=== PATIENT | male | born 1950 | race Caucasian/White ===

== ENCOUNTER 2016-11-28 22:51 | Inpatient (IN) | payer OTHER ==
--- NOTE | ~2016-11-28 | CN ---
Consultation Report [facility] [address] [place]. [address] NAME: DEBBY DUARTE : 50 STATUS : ADM IN PAT#: [id number] AGE: 66 ADM/REG DATE : 11/29/16 MR#: [id number] REPORT SERV DATE: 11/30/16 DICTATED BY: RACHELLE MCDUFFIE DATE: 11/29/16 REPORT STATUS : Draft TRANSCRIBED BY: LEIA DATE: 11/29/16 DATE OF CONSULTATION: REASON FOR EVALUATION: Atrial fibrillation. HISTORY: The patient is a 66-year-old white male, who underwent a right lower lobectomy for non-small cell cancer of the lung. Postoperatively, he developed atrial fibrillation requiring cardioversion. He was placed on amiodarone and dabigatran. He was discharged home on 11/29/2016. Upon arrival, he noted return of his tachy palpitations. Upon presentation to the emergency room, he was found to be in AFib with rapid ventricular response. Heart rates in the 150-160 beats per minute range. He received a bolus of Cardizem and converted to normal rhythm. He has had moderate breathlessness as well as a productive cough, although he has not been able to produce a sputum sample as yet. He gives no prior history of heart disease, although he does have a [id number] smoking history. CURRENT HOME MEDICATIONS: Amiodarone 200 mg daily, Augmentin 875 b.i.d., dabigatran etexilate 150 b.i.d., diltiazem CD 120 a day, docusate sodium 100 per day, fluticasone nasal spray p.r.n., gabapentin 300 t.i.d., guaifenesin 400 q.4h. p.r.n., mupirocin 2% cream, oxycodone 15 q.6h., sildenafil 100 p.r.n., triamcinolone cream p.r.n., and Pepcid. ALLERGIES OR INTOLERANCES: None known. SOCIAL HISTORY: As mentioned. He has long-standing smoking history, should be 55 years. He quit one month ago. Negative for alcohol or illicit drug use. He has a 9-year-old son at home. FAMILY HISTORY: Mother had cancer of unknown type. Father had colon cancer. at age 89. He has siblings, who are otherwise healthy. There is no family history of diabetes or coronary artery disease. PAST MEDICAL HISTORY/REVIEW OF SYSTEMS: History of peritonsillar abscess, history of herpes zoster. He is status post tonsillectomy, left inguinal hernia repair, left rotator cuff repair. Remainder of the systems review is negative. During his episode of atrial fibrillation at the [facility] in [place], he states he was asymptomatic. He has had no PND or orthopnea. He has had no exertional chest discomfort. PHYSICAL EXAMINATION: GENERAL: A 66-year-old white male, pleasant, in no acute distress. VITAL SIGNS: Blood pressure 142/76, pulse 84 and regular, respirations 20. SKIN: No xanthelasmas. HEENT: Normocephalic. There is no pallor. Sclerae white. JVD is not elevated. CHEST: There is hyperresonant to percussion. There are no crackles. CARDIAC: S1 normal. S2 physiologic. There is an S4. Consultation Report [address] [place]. [address] NAME: DEBBY DUARTE : 50 STATUS : ADM IN [facility]#: [id number] AGE: 66 ADM/REG DATE : 11/29/16 MR#: [id number] REPORT SERV DATE: 11/30/16 DICTATED BY: RACHELLE MCDUFFIE DATE: 11/29/16 REPORT STATUS : Draft TRANSCRIBED BY: LEIA DATE: 11/29/16 ABDOMEN: Protuberant. Bowel sounds diminished. EXTREMITIES: With trace edema. NEUROLOGIC: No focal deficits. MUSCULOSKELETAL: No kyphosis. LABORATORY DATA: Potassium 5.5, BUN 23, creatinine 1.32, magnesium 2.2. ALT and AST slightly elevated at 66 and 85 respectively. TSH 16.1. Cardiac enzymes are negative. BNP is 124, white count 11.1, hemoglobin 11, platelets 200,000. Chest x-ray shows recent right lobectomy, small pleural effusions, and subcutaneous emphysematous changes over the chest wall. There are no large or small vessel calcification noted on the portable film. IMPRESSION: Postoperative atrial fibrillation in 66-year-old gentleman with recent right lower lobectomy. He is on appropriate therapy. He is asymptomatic with his arrhythmias. We could consider increasing his Cardizem to 240 a day. Some of the therapy he is receiving would be portending him to constipation. Addendum ECG post conversion shows incomplete right bundle branch block pattern with no acute repolarization changes present. Initial ECG shows atrial fibrillation, rate 151 beats per minute. No acute repolarization changes present. See recommendations for medication adjustment and orders. We will continue to follow with you. DANG/LEIA Rachelle Mcduffie M.D. / [id number] CC: Darai Youngblood M.D. [facility]
--- NOTE | ~2016-11-28 | DS ---
Discharge Summary [facility] [address] [place]. [address] NAME: DEBBY DUARTE : 50 STATUS : DIS IN PAT#: [id number] AGE: 66 ADM/REG DATE : 11/29/16 MR#: [id number] REPORT SERV DATE: 12/04/16 DICTATED BY: IGNACIA MADRIGAL DATE: 12/03/16 REPORT STATUS : Draft TRANSCRIBED BY: LEIA DATE: 12/03/16 ADMISSION DATE: 11/29/2016 DISCHARGE DATE: 12/03/2016 DIAGNOSES: 1. Fluid overload. 2. Atrial fibrillation with rapid ventricular response. 3. Right hydropneumothorax. 4. Hypertension. 5. Hypothyroidism. 6. History of non-small cell lung cancer, status post recent lobectomy through the [place]. FOLLOWUP: The patient is to follow up with his oncologist, which is already scheduled at [place] on 12/17/2016; to follow up with a CT surgeon through the [place], which is already scheduled on 12/18/2016; and follow up with his primary care physician in one to two weeks. CONSULTANTS: 1. Pulmonary, Dr. Gamble. 2. Cardiothoracic surgeon, Dr. Erickson. 3. Contracting Support Specialist, Dr. Tay Mcduffie. HOSPITAL COURSE: This is a 66 years old male with a past medical history of paroxysmal atrial fibrillation and non-small cell lung cancer. The patient was recently admitted to [facility] in [place] and required right lower lobe lobectomy for a lung mass. The patient had atrial fibrillation as well during the hospital stay and placed on amiodarone, diltiazem, and Pradaxa. The patient was discharged with 2 to 4 L of oxygen from the [facility] in [place]. However, the patient stated after discharge, he was noticed to have increased heart rate with palpitations. He came to [facility] ER, found to be in atrial fibrillation with RVR with a pulse rate 150 to 160. He converted to normal sinus rhythm after giving a diltiazem bolus. Also, found to have bilateral pleural effusions. The patient was admitted to the Hospitalist Service with a Cardiology consultation, seen by Dr. Tay Mcduffie. Also, the patient was initially admitted to Dr. Daria Youngblood for Internal Medicine/Hospitalist Service. The patient did require diuresing and placed on Lasix. Also, he was continued with heart rate control, management with amiodarone. His diltiazem was increased to 240 mg daily by Cardiology and placed on atenolol with good management of heart rate. The patient was noted to have CT of the chest without contrast with findings consistent with hydropneumothorax, being followed by Pulmonary, therefore, geoscience technician consulted Cardiothoracic Surgery for evaluation. Per Cardiothoracic Surgery, the patient did not require any further surgical intervention and did not have any signs of fistula, but states that his CT findings are secondary to poor lung reexpansion secondary to his recent right lower lobe lobectomy, but at this time, do not require any intervention. The patient continued with diuresing with improvement of lung function; however, still requiring oxygen at discharge and still will have some chronic effusion secondary to his hydropneumothorax secondary to his recent lobectomy. Also, the patient's heart rate was controlled at the time of discharge and approved for discharge by Pulmonary as well as Cardiology. At the time of discharge, the patient was clinically stable. Discharge Summary [facility] [address] [place]. [address] NAME: DEBBY DUARTE : 50 STATUS : DIS IN PAT#: [id number] AGE: 66 ADM/REG DATE : 11/29/16 MR#: [id number] REPORT SERV DATE: 12/04/16 DICTATED BY: IGNACIA MADRIGAL DATE: 12/03/16 REPORT STATUS : Draft TRANSCRIBED BY: LEIA DATE: 12/03/16 DISCHARGE MEDICATIONS: Amiodarone 200 mg p.o. daily, guaifenesin 400 mg p.o. q.4 hours p.r.n., Pradaxa 150 mg p.o. b.i.d., diltiazem CD 240 mg p.o. daily, Flonase two sprays in each nostril daily, furosemide 20 mg p.o. b.i.d., Neurontin 300 mg p.o. t.i.d., levothyroxine 50 mcg p.o. q.a.m., albuterol MDI two puffs inhaled every four hours, Bactroban ointment topically three times a day, Florastor one cap p.o. b.i.d., Spiriva 18 mcg cap inhaled daily, triamcinolone topical cream per prior prescriber, Roxicodone 15 mg p.o. q.6 hours p.r.n., artificial tears p.r.n., potassium chloride 20 mEq p.o. daily, atenolol 12.5 mg p.o. b.i.d. HOSPITALISTS: Dr. Cox, Dr. Daria Youngblood, Dr. Madrigal. JAZ/MODL Ignacia Madrigal M.D. / [id number] CC: Ignacia Madrigal M.D. [facility]
--- NOTE | ~2016-11-28 | HP ---
History And Physical [facility] [address] [place]. [address] NAME: DEBBY CHAND : 50 STATUS : ADM Mohamud PAT#: [id number] AGE: 66 ADM/REG DATE : 11/28/16 MR#: [id number] REPORT SERV DATE: 11/29/16 DICTATED BY: RODRÍGUEZ SERRANO DATE: 11/29/16 REPORT STATUS : Draft TRANSCRIBED BY: MODL DATE: 11/29/16 DATE OF ADMISSION: 11/28/2016 POINT OF ENTRY: [facility] Emergency Department PRIMARY CARE PHYSICIAN: None at this time. CHIEF COMPLAINT: Palpitations and fast heart rate. HISTORY OF PRESENT ILLNESS: Mr. Chand is a 66-year-old gentleman with a history of non- small cell lung cancer, as well as paroxysmal atrial fibrillation, who presents to the emergency room today with reports of palpitations and fast heart rate. The patient was recently admitted to the [facility] for a right lower lobe lobectomy for a lung mass. Pathology documents squamous cell carcinoma of the lung with reported negative margins as well as negative lymph nodes. The patient's hospital stay was complicated by atrial fibrillation with RVR requiring DCCV as well as placement on amiodarone, diltiazem, and Pradaxa. The patient was discharged to home early this morning from the [facility] on 2 L by nasal cannula oxygen. Upon arriving home, the patient noted palpitations as well as fast heart rate and presented to the emergency department. He, otherwise denies any fevers, night sweats, chills, chest pain, abdominal pain, nausea, vomiting, diarrhea, constipation, dysuria, lower extremity edema, melena, hematochezia, or hemoptysis. He does report some shortness of breath, as well as cough and sputum production as well as some significant pain with coughing postoperatively. Initial evaluation in the emergency department revealed atrial fibrillation with RVR. Heart rates in the 150s to 160s. He received bolus of diltiazem with conversion to normal sinus rhythm. Labs otherwise unremarkable. Chest x-ray, however, was concerning for bilateral pleural effusions as well as intravascular volume overload. As such, he was admitted to the Hospitalist Service for further evaluation and management. Again, the patient denies any history of coronary artery disease or congestive heart failure. He thinks he had an echocardiogram during his [place] stay for atrial fibrillation, but is unable to tell me the results of which and does not have those results in the documents that he brings with him today. PREVIOUS MEDICAL HISTORY: 1. Non-small cell lung cancer, status post recent right lower lobe lobectomy. 2. Paroxysmal atrial fibrillation, on Pradaxa. 3. History of peritonsillar abscess. 4. History of herpes zoster. SURGICAL HISTORY: 1. Right lower lobe lobectomy. History And Physical [address] [address] NAME: DEBBY CHAND : 50 STATUS : ADM Mohamud PAT#: [id number] AGE: 66 ADM/REG DATE : 11/28/16 MR#: [id number] REPORT SERV DATE: 11/29/16 DICTATED BY: RODRÍGUEZ SERRANO DATE: 11/29/16 REPORT STATUS : Draft TRANSCRIBED BY: LEIA DATE: 11/29/16 2. Tonsillectomy. 3. Left inguinal hernia repair. 4. Left rotator cuff repair. ALLERGIES: NO KNOWN DRUG ALLERGIES. HOME MEDICATIONS: 1. Amiodarone 200 mg daily. 2. Augmentin 875 mg b.i.d. 3. Artificial tears. 4. Pradaxa 150 mg b.i.d. 5. Diltiazem 120 mg daily. 6. Docusate 100 mg daily. 7. Flonase two sprays nasal daily. 8. Gabapentin 300 mg t.i.d. 9. Guaifenesin 400 mg q.4 hours p.r.n. 10.Bactroban topical cream one application t.i.d. 11.Roxicodone 15 mg q.6 hours p.r.n. 12.Viagra 100 mg p.r.n. 13.Triamcinolone topical cream. 14.Carboxymethylcellulose. SOCIAL HISTORY: He is a former smoker, quit about a month ago. Denies any alcohol. Denies illicits. FAMILY MEDICAL HISTORY: Mother with cancer, type unknown. Father with colon cancer. Siblings, otherwise healthy. LABS AND IMAGIN. White count 8.9, hemoglobin 11.1, hematocrit is 33.8, platelets 210. INR 1.2. 2. Sodium is 138, potassium 4.5, chloride 99, carbon dioxide 30, BUN 21, creatinine 1.22, glucose is 158, calcium is 8.5, magnesium is 2.3. 3. Troponin less than 0.02. BNP is pending at time of dictation. 4. EKG per my review. Initial EKG shows atrial fibrillation with RVR. Heart rates in the 150s. Repeat EKG now shows normal sinus rhythm with an incomplete right bundle branch block. No evidence of any acute ischemia or infarction. Chest x-ray, per my review, shows bilateral pleural effusions as well as intravascular volume overload and pulmonary venous congestion. PHYSICAL EXAMINATION: VITAL SIGNS: Temperature is 98.1 degrees Fahrenheit, pulse initially is 152, blood pressure 129/90, saturating 99% on 2 L by nasal cannula, blood pressure is now 115/65, pulse is 76 in normal sinus rhythm, again saturating 96% on 2 L by nasal cannula. GENERAL: The patient is awake, alert, and in no acute distress. Resting comfortably in bed. He is a well-developed, well-nourished, elderly male. HEENT: Atraumatic and normocephalic. Moist mucous membranes. Pupils equal, round, reactive to light and accommodation. Extraocular eye movements intact. No scleral icterus. History And Physical [address] [address] NAME: DEBBY CHAND : 50 STATUS : ADM Mohamud PAT#: [id number] AGE: 66 ADM/REG DATE : 11/28/16 MR#: [id number] REPORT SERV DATE: 11/29/16 DICTATED BY: RODRÍGUEZ SERRANO DATE: 11/29/16 REPORT STATUS : Draft TRANSCRIBED BY: LEIA DATE: 11/29/16 NECK: No jugular venous distention. No carotid bruits. CARDIAC: Regular rate and rhythm. No murmurs or gallops. Normal S1, S2. LUNGS: He is on oxygen, but in no respiratory distress. He does have some bibasilar inspiratory crackles as well as rales. The right thoracotomy site is clean, dry, and intact. ABDOMEN: Soft, nontender, nondistended. Good bowel sounds. No rebound or guarding or rigidity. EXTREMITIES: Warm and perfused. No cyanosis or clubbing with very trace pedal edema. SKIN: Warm and dry. PSYCH: Affect appropriate. NEURO: Alert and oriented x3. Cranial nerves II through XII grossly intact. Speech is normal. Gait not assessed. ASSESSMENT AND PLAN: Mr. Chand 66-year-old gentleman who presents with an atrial fibrillation patient with rapid ventricular response, now in normal sinus rhythm and found to have evidence of acute congestive heart failure with volume overload. Problem list: 1. Acute congestive heart failure with volume overload. 2. Atrial fibrillation with rapid ventricular response. 3. Non-small cell lung cancer. PLAN: 1. Acute CHF and volume overload. It is unclear if the volume overload that we are seeing is secondary to fluid resuscitation received during his surgery as well as postoperative period versus some CHF type pattern from his atrial fibrillation with RVR or secondary to LV or diastolic dysfunction. He is not on any Lasix at this time, so we will initially treat him with very low doses of IV Lasix initially as well as check a BNP as well as echocardiogram. Also, I will try to obtain records from the [facility]. 2. Atrial fibrillation with RVR. Now in normal sinus rhythm. Continue the patient's home medications. Checking thyroid function studies, as well as cardiac enzymes. 3. Non-small cell lung cancer. I will defer care to the [facility]. 4. DVT prophylaxis. On Pradaxa. CODE STATUS: The patient wished to be full code. MILI/LEIA Rodríguez Serrano MD / [id number]
--- NOTE | ~2016-11-28 | CN ---
Consultation Report [facility] [address] [place]. [address] NAME: DEBBY DUARTE : 50 STATUS : ADM IN PAT#: [id number] AGE: 66 ADM/REG DATE : 11/29/16 MR#: [id number] REPORT SERV DATE: 12/02/16 DICTATED BY: RODRÍGUEZ ERICKSON JR. DATE: 12/01/16 REPORT STATUS : Draft TRANSCRIBED BY: MODL DATE: 12/01/16 CONSULTATION AND HISTORY AND PHYSICAL DATE OF CONSULTATION: 11/30/2016 REASON FOR CONSULTATION: Pneumothorax, status post right lower lobectomy. BRIEF HISTORY: This is a 66-year-old white male with a history of a very large right lower lobe squamous cell carcinoma that was resected at the [place] [facility] last week, and this was done with a right thoracotomy. He presented to [facility] on 11/28/2016 with atrial fibrillation with rapid ventricular response. He does report that he had difficulties postoperatively with atrial fibrillation and was placed on amiodarone and cardioverted. He underwent a CT of the chest which demonstrated a small right hydropneumothorax and given his recent lung resection at outlying facility, we were asked to see him and make recommendations regarding this finding. PAST MEDICAL HISTORY: Significant for atrial fibrillation, COPD, squamous cell carcinoma of the right lower lobe, status post right lower lobectomy approximately one week ago at the [facility]. PAST SURGICAL HISTORY: Significant for the above-mentioned right thoracotomy, right lower lobectomy, tonsillectomy, left inguinal hernia repair, and left rotator cuff repair. SOCIAL HISTORY: The patient is a past smoker having a greater than [id number] smoking history having quit around the time of today's diagnosis of a squamous cell carcinoma. He is a musician. ALLERGIES: NO KNOWN DRUG ALLERGIES. HOME MEDICATIONS: Include Amitiza 24 mcg twice a day, Augmentin 875 mg twice a day, Bactroban 3 times a day, Cardizem 60 mg every 8 hours, Colace 100 mg 3 times a day, Cordarone 200 mg daily, Dulera, Flonase, Humibid, Lasix 12 mg p.o. twice daily, MiraLAX, Neurontin 300 mg every 8 hours, Pradaxa 150 mg twice a day, Protonix 40 mg daily, Synthroid 50 mcg daily, and Tenormin 25 mg twice a day. FAMILY HISTORY: Significant for siblings and father with diabetes mellitus as well as atrial fibrillation. His father had colon cancer and his mother had an unspecified cancer of the neck. REVIEW OF SYSTEMS: Significant for mild shortness of breath and some postoperative pain. A complete 12-point review of systems was performed. All other systems were negative except for the above mentioned pertinent positives in the history of present illness. Consultation Report [address] [place]. [address] NAME: DEBBY DUARTE : 50 STATUS : ADM IN [facility]#: [id number] AGE: 66 ADM/REG DATE : 11/29/16 MR#: [id number] REPORT SERV DATE: 12/02/16 DICTATED BY: RODRÍGUEZ ERICKSON JR. DATE: 12/01/16 REPORT STATUS : Draft TRANSCRIBED BY: LEIA DATE: 12/01/16 PHYSICAL EXAMINATION: GENERAL: This is a 66-year-old male, who is alert, oriented, and in no acute distress. VITAL SIGNS: 96% on 3 L via the nasal cannula, blood pressure 104/62, afebrile, heart rate 54, height 5 feet 9 inches, weight 104 kg. HEENT: Normocephalic, atraumatic. Pupils are equal, round, and reactive to light. Ears, nose, and throat without lesions or exudate. NECK: Supple with no lymphadenopathy, JVD, or bruits. Trachea midline. No obvious goiter. CHEST: Symmetrical with no chest wall deformities. There is a healing right thoracotomy site with some palpable subcutaneous emphysema within the right chest wall. Breath sounds are decreased on the right with some inspiratory crackles. ABDOMEN: Soft, nontender, nondistended. Positive bowel sounds in all four quadrants. No hepatosplenomegaly. GENITOURINARY: The patient voids without difficulty. Further examination is deferred. MUSCULOSKELETAL: No obvious kyphosis or scoliosis. EXTREMITIES: No cyanosis or edema. 2+ pulses bilaterally. NEUROLOGIC: No focal neurological deficits noted. PSYCHIATRIC: Normal affect. He is pleasant. SKIN: Warm and dry with normal turgor. No obvious breakdowns or lesions noted. DATA: 1. CT of the chest dated 11/30/2016 showing small to moderate right-sided pneumothorax measuring up to 3.7 cm in thickness anteriorly. 2. There is also a loculated appearing pleural fluid collection in the posterior basilar right pleural space. 3. Air bubble. 4. The patient appears to be status post right lower lobectomy. 5. Consolidation within the basilar right middle lobe. There is also some additional ground-glass opacity in the right middle lobe and posterior right upper lobe. 6. Moderate upper lobe predominant emphysematous changes in the lungs. 7. Mediastinal soft tissue into level at 4R, measuring 18 x 21 mm. Laboratories dated 11/30/2016: Sodium 138, potassium 4.6, BUN 27, creatinine 1.3, glucose 128. White blood cell count 8.3, hemoglobin 11, hematocrit 33.7, and platelet count 192. PROBLEM LIST: 1. History of squamous cell carcinoma, status post right thoracotomy and right lower lobectomy. 2. Chronic obstructive pulmonary disease. 3. Previous tobacco abuse. 4. Atrial fibrillation. IMPRESSION AND PLAN: This is a 66-year-old male, who underwent a right thoracotomy with right lower lobectomy for a very large squamous cell carcinoma at that at the [place] and he presented to the [facility] ER with atrial fibrillation with rapid ventricular response. He states that he had difficulties with atrial fibrillation following his resection. A CT of the chest was obtained and showed some abnormal findings which are Consultation Report [address] [place]. [address] NAME: DEBBY DUARTE : 50 STATUS : ADM IN [facility]#: [id number] AGE: 66 ADM/REG DATE : 11/29/16 MR#: [id number] REPORT SERV DATE: 12/02/16 DICTATED BY: RODRÍGUEZ ERICKSON JR. DATE: 12/01/16 REPORT STATUS : Draft TRANSCRIBED BY: LEIA DATE: 12/01/16 likely consistent with his recent right lower lobectomy. There was some question whether or not he had a bronchopleural fistula. Given his debility as well as no abundant subcutaneous emphysema, I do not feel like that isn't likely at this time. His CT likely represents a small pneumothorax secondary to poor lung reexpansion following his right lower lobectomy. If he were to decompensate, start presenting signs as probable bronchopleural fistula. Recommend a bronchoscopy. We will continue follow along as needed. DICTATED BY: Alisha Antunez NP AM/LEIA Rodríguez Erickson Jr., M.D. / [id number] CC: Yas Castano M.D. UNKNOWN
--- NOTE | ~2016-11-28 | CN ---
Consultation Report [facility] [address] [place]. [address] NAME: DEBBY CHAND : 50 STATUS : ADM IN PAT#: [id number] AGE: 66 ADM/REG DATE : 11/29/16 MR#: [id number] REPORT SERV DATE: 12/01/16 DICTATED BY: JUAN GAMBLE IV DATE: 11/30/16 REPORT STATUS : Draft TRANSCRIBED BY: LEIA DATE: 11/30/16 PULMONARY CONSULTATION. DATE OF CONSULTATION: 11/30/2016 REQUESTING PHYSICIAN: Daria Youngblood MD REASON FOR REQUEST: Iatrogenic pneumothorax, status post right lower lobectomy for lung cancer resection. HISTORY OF PRESENT ILLNESS: History was obtained from the patient and the records. Mr. 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 The patient reports that he underwent lung cancer screening chest CT scan demonstrating a right lower lobe mass. He underwent preoperative evaluation and was felt to be a surgical candidate. He underwent thoracotomy and right lower lobectomy last Wednesday with negative lymph nodes and negative margins with a 7 cm squamous cell carcinoma of the right lower lobe. The patient states that there was no air leak to his knowledge and was not informed that there was any residual pneumothorax at the time of his discharge last Wednesday. Postoperatively, he did have difficulties with atrial fibrillation for which he was placed on amiodarone and cardioverted. He was clinically in sinus rhythm at the time of discharge. At home he developed heart palpitations with increased shortness of breath for which he presented to our facility. He was found to be in atrial fibrillation with rapid ventricular response with chest radiograph demonstrating a small hydropneumothorax on the right for which we are consulted. The patient is unaware of his preoperative pulmonary function studies, however, was not placed on bronchodilator medications. He was sent home on supplemental oxygen at 2 L at rest and setting of 4 with a conserving device. He does have intermittent cough productive of white phlegm. He had scant hemoptysis that has subsequently resolved. There was no fevers, chills, or sweats. The patient reportedly snores and his significant other has witnessed apneic episodes. He finds that sleep is nonrestorative, and complains of sedentary hypersomnolence. He has never undergone evaluation for obstructive sleep apnea. PULMONARY HISTORY: Remarkable for no history of childhood asthma. He is unaware of the clinical diagnosis of COPD. He has never had pneumonia. He is a 24-oqkc-nove smoker, having quit around the time of his diagnosis. 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 He is up to date on the Pneumovax, though he has not received the Prevnar-13, and refuses seasonal influenza vaccinations. PAST MEDICAL HISTORY: 1. Squamous cell carcinoma of the right lower lobe. Consultation Report [address] [place]. [address] NAME: DEBBY CHAND : 50 STATUS : ADM [facility]#: [id number] AGE: 66 ADM/REG DATE : 11/29/16 MR#: [id number] REPORT SERV DATE: 12/01/16 DICTATED BY: JUAN GAMBLE IV DATE: 11/30/16 REPORT STATUS : Draft TRANSCRIBED BY: LEIA DATE: 11/30/16 2. Postoperative atrial fibrillation. SURGERIES: 1. Right lower lobectomy. 2. Tonsillectomy for tonsillar abscess. 3. Left inguinal herniorrhaphy. 4. Left rotator cuff repair. ALLERGIES: NO KNOWN DRUG ALLERGIES. MEDICATIONS: Outpatient medications include: Amitiza 24 mcg twice a day, Augmentin 875 mg twice a day, Bactroban three times a day, Cardizem 60 mg q.8 hours, Colace 100 mg three times a day, Cordarone 200 mg daily, Dulera two puffs twice a day, Flonase two sprays each nostril daily, Humibid 600 mg three times a day, Lasix 20 mg q.12 hours, MiraLAX one daily, Neurontin 300 mg every 8 hours, Pradaxa 150 mg twice a day, Protonix 40 mg daily, Synthroid 50 mcg daily, and Tenormin 25 mg twice a day. SOCIAL HISTORY: Remarkable for the tobacco use as above. He denies alcohol or illicit drug use. He is currently living with his first whom he had , they have one child. FAMILY HISTORY: Remarkable for sibling and father with diabetes mellitus, sibling and father with atrial fibrillation, father with colon cancer, and mother with an unspecified lymph node cancer of neck. REVIEW OF SYSTEMS: 14-systems reviewed and pertinent positives noted above. PHYSICAL EXAMINATION: GENERAL: This is an obese, elderly, male, in no current distress. He is on supplemental oxygen. VITAL SIGNS: Temperature is 97.8, pulse is 122 and irregular, saturations are 96% on 1 L via nasal cannula, respiratory rate is 16, and blood pressure is 137/79. HEENT: Normocephalic, atraumatic. Extraocular movements are intact. Pupils react to light. Sclerae and conjunctivae normal. He has a nasal cannula in place. He has a Mallampati 3 airway with an elongated soft palate and narrowing of the posterior pharyngeal space. He is edentulous. NECK: Without any palpable lymphadenopathy or thyromegaly. CHEST: The patient has a healed thoracotomy incision site with some subcutaneous air in the chest wall and two chest tube incision sites which are healed. He has a rub. There are decreased breath sounds symmetrically. A few inspiratory crackles at the right base. No true wheezes or rhonchi are noted. CARDIOVASCULAR: He has an irregularly irregular, tachycardic, S1, S2 with no clear murmur or S3. Jugular venous pulsations are 6 cm. He has 2+ carotid upstrokes. No obvious bruit. ABDOMEN: The abdomen is distended, there is high-pitched bowel sounds which are active. There is no palpable hepatosplenomegaly or masses. Consultation Report [address] [place]. [address] NAME: DEBBY CHAND : 50 STATUS : ADM [facility]#: [id number] AGE: 66 ADM/REG DATE : 11/29/16 MR#: [id number] REPORT SERV DATE: 12/01/16 DICTATED BY: JUAN GAMBLE IV DATE: 11/30/16 REPORT STATUS : Draft TRANSCRIBED BY: LEIA DATE: 11/30/16 EXTREMITIES: Demonstrate no cyanosis, clubbing, edema, or palpable cords. NEUROLOGIC: Strength is 5/5 and sensation intact to light touch. LABORATORY DATA: Chest x-ray demonstrates a hypoventilatory effort. There is some subcutaneous air. There is a small right-sided predominantly pneumothorax with a small air- fluid level. CBC: Hemoglobin 11, hematocrit 33.7, platelet count was 190,000, white blood cell count is 8.3. Chemistry: Sodium 138, potassium 4.6, chloride 101, bicarb 29, BUN 27, creatinine 1.3 glucose 128, magnesium 2.4. TSH was 16.1 with a free T4 which was normal at 1.02. Troponin was not elevated. Hepatitis panel was nonreactive with elevation of AST and ALT. ASSESSMENT AND PLAN: 1. Respiratory. The patient is unaware of a history of chronic obstructive pulmonary disease. We have requested results of his preoperative pulmonary function studies. We added Spiriva one capsule daily, continue the Dulera, we changed to half dose albuterol q.2 hours as needed. [facility]. He likely just has a small postoperative pneumothorax which is stable. We will get results of the discharge [facility]. Oxygen will be provided as needed to maintain saturation in the 90% to 94% range. The patient clinically has obstructive sleep apnea which is particularly important with his atrial fibrillation. Outpatient sleep study when he recuperates from his thoracotomy. 2. Renal. We will check a phosphate level and replace as indicated. 3. Endocrinologic. TSH may be elevated secondary amiodarone. Hemoglobin A1c will be obtained with hyperglycemia which may be stressed induced. 4. Infectious disease. Prevnar 13 at the time of discharge. Thank you for consulting us. We will follow patient with you. ANDRES/LEIA Juan Gamble IV, M.D. / [id number] CC: Daria Younglbood M.D.
[~2016-11-28 22:51] MED LIST: DENIES TAKING MEDS; P10 PO; VALTREX5 PO; [UNRECOGNIZED DRUG - CODE] PO
[2016-11-29 00:45] LABS: BASOPHILS 0.1 %; BASOPHILS ABSOLUTE 0.01 10/3/uL (0.0-0.16); EOSINOPHILS 2.3 %; HEMATOCRIT 33.8 % (40.0-51.0); HEMOGLOBIN 11.1 g/dL (13.6-17.8); IMMATURE GRANULOCYTES 0.1 %; IMMATURE GRANULOCYTES ABSOLUTE 0.01 10/3/uL (0.0-0.11); LYMPHOCYTES 15.1 %; LYMPHOCYTES ABSOLUTE 1.34 10/3/uL (0.67-4.30); MEAN CORPUSCULAR HEMOGLOB 29.8 pg (26.0-34.0); MEAN PLATELET VOLUME 10.4 fL (9.2-13.0); MONOCYTES 7.8 %; MONOCYTES ABSOLUTE 0.69 10/3/uL (0.21-1.20); NEUTROPHILS 74.6 %; PLATELET COUNT 210 10/3/uL (150-400); RED CELL COUNT 3.72 10/6/uL (4.7-6.1); WHITE BLOOD CELLS 8.9 10/3/uL (4.5-10.5)
[2016-11-29 00:46] LABS: MANUAL DIFF NO %; MEAN CORPUS HGB CONC 32.8 g/dL (32.0-36.0); MEAN CORPUSCULAR VOLUME 90.9 fL (80-100); RBC DISTRIBUTION WIDTH 15.4 % (12.0-16.0)
[2016-11-29 00:54] LABS: INTERNATIONAL NORMAL RATI 1.2 UNITS (-); PARTIAL THROMBO TIME 47.9 SEC (22.5-37.2); PROTIME (NOT ORD) 15.3 SEC (12.0-14.5)
[2016-11-29 01:03] LABS: BUN (BLOOD UREA NITROGEN) 21 MG/DL (6-23); CALCIUM, SERUM 8.5 MG/DL (8.5-10.4); CHEST PAIN PROFILE TAT 0 Hrs 24 Mins; CHLORIDE, SERUM 99 MMOL/L (96-112); CO2 (CARBON DIOXIDE) 30 MMOL/L (24-34); CREATININE 1.22 MG/DL (0.70-1.30); GFR AFRICAN AMERICAN 71 ML/MIN (>=60); GFR NON AFRICAN AMERICAN 61 ML/MIN (>=60); POTASSIUM, SERUM 4.5 MMOL/L (3.5-5.3); SODIUM, SERUM 138 MMOL/L (135-148); TROPONIN I <0.02 NG/ML (<0.05)
[2016-11-29 01:08] LABS: GLUCOSE, SERUM 158 MG/DL (60-99)
[2016-11-29] MEDS ORDERED: TRIAMCINOLONE454 GM TOP (01:24)
[2016-11-29] MEDS ORDERED: VIAGRA100 MG PO (01:24)
[2016-11-29] MEDS ORDERED: BACTROCR TOP (01:25)
[2016-11-29] MEDS ORDERED: ROXICODONE15 MG PO (01:25)
[2016-11-29] MEDS ORDERED: FENESIN IR400 MG PO (01:26)
[2016-11-29] MEDS ORDERED: NEUR300 PO (01:26)
[2016-11-29] MEDS ORDERED: FLONASE NAS (01:27)
[2016-11-29] MEDS ORDERED: D.O.S.100 MG PO (01:27)
[2016-11-29] MEDS ORDERED: CARDCD120 PO (01:32)
[2016-11-29] MEDS ORDERED: PRADAXA150 MG PO (01:33)
[2016-11-29] MEDS ORDERED: CARBOXYMETHYLCELLULOSE (01:35)
[2016-11-29] MEDS ORDERED: AUG875 PO (01:35)
[2016-11-29] MEDS ORDERED: PACERONE200 MG PO (01:36)
[2016-11-29] MEDS ORDERED: HYPOTEARS (01:37)
[2016-11-29 09:06] LABS: ALBUMIN 2.7 G/DL (3.5-5.0); ALKALINE PHOSPHATASE 71 U/L (45-117); CPK (IF ELEVATED MB BANDS) 319 U/L (0-200); DIRECT BILIRUBIN 0.1 MG/DL (0.0-0.4); FREE T4 1.02 NG/DL (0.76-1.46); INDIRECT BILIRUBIN(NOT ORDER) 0.4 MG/DL (0.1-0.9); SGOT(AST) 68 U/L (5-40); SGPT(ALT) 53 U/L (5-65); TOTAL BILIRUBIN 0.5 MG/DL (0-1.2); TOTAL PROTEIN 7.3 G/DL (6.0-8.5); TROPONIN I <0.02 NG/ML (<0.05)
[2016-11-29 09:22] LABS: CK-MB 1.2 NG/ML
[2016-11-29 14:31] LABS: BASOPHILS 0.2 %; BASOPHILS ABSOLUTE 0.02 10/3/uL (0.0-0.16); EOSINOPHILS 3.3 %; EOSINOPHILS ABSOLUTE 0.37 10/3/uL (0.0-0.53); HEMATOCRIT 33.6 % (40.0-51.0); IMMATURE GRANULOCYTES 0.4 %; IMMATURE GRANULOCYTES ABSOLUTE 0.04 10/3/uL (0.0-0.11); LYMPHOCYTES 17.5 %; LYMPHOCYTES ABSOLUTE 1.94 10/3/uL (0.67-4.30); MANUAL DIFF NO %; MEAN CORPUS HGB CONC 32.7 g/dL (32.0-36.0); MEAN CORPUSCULAR HEMOGLOB 30.6 pg (26.0-34.0); MEAN CORPUSCULAR VOLUME 93.6 fL (80-100); MONOCYTES 5.3 %; MONOCYTES ABSOLUTE 0.59 10/3/uL (0.21-1.20); NEUTROPHILS 73.3 %; PLATELET COUNT 200 10/3/uL (150-400); RBC DISTRIBUTION WIDTH 15.3 % (12.0-16.0); RED CELL COUNT 3.59 10/6/uL (4.7-6.1); WHITE BLOOD CELLS 11.1 10/3/uL (4.5-10.5)
[2016-11-29 14:52] LABS: A/G RATIO 0.6 (0.7-1.9); ALBUMIN 2.7 G/DL (3.5-5.0); ALKALINE PHOSPHATASE 68 U/L (45-117); BUN (BLOOD UREA NITROGEN) 23 MG/DL (6-23); CALCIUM, SERUM 8.4 MG/DL (8.5-10.4); CHLORIDE, SERUM 102 MMOL/L (96-112); CO2 (CARBON DIOXIDE) 29 MMOL/L (24-34); CPK (IF ELEVATED MB BANDS) 295 U/L (0-200); CREATININE 1.32 MG/DL (0.70-1.30); GFR AFRICAN AMERICAN 65 ML/MIN (>=60); GFR NON AFRICAN AMERICAN 56 ML/MIN (>=60); GLOBULIN 4.4 G/DL (2.5-4.1); GLUCOSE, SERUM 148 MG/DL (60-99); POTASSIUM, SERUM 5.5 MMOL/L (3.5-5.3); SGOT(AST) 85 U/L (5-40); SGPT(ALT) 66 U/L (5-65); SODIUM, SERUM 137 MMOL/L (135-148); TOTAL BILIRUBIN 0.5 MG/DL (0-1.2); TOTAL PROTEIN 7.1 G/DL (6.0-8.5); TROPONIN I <0.02 NG/ML (<0.05)
[2016-11-29 15:05] LABS: CK-MB 1.1 NG/ML
[2016-11-29 17:37] LABS: ASCORBIC ACID (UR NOT ORDER) NEG (NEG); BILIRUBIN, URINE NEGATIVE (NEG); KETONE, URINE NEGATIVE (NEG); LEUKOCYTE ESTERASE(NOT OR NEG (NEG); WBC (NOT ORDERED) (RFLEX) 2 (0-5)
[2016-11-30 04:47] LABS: BASOPHILS 0.2 %; BASOPHILS ABSOLUTE 0.02 10/3/uL (0.0-0.16); EOSINOPHILS 4.1 %; EOSINOPHILS ABSOLUTE 0.34 10/3/uL (0.0-0.53); HEMATOCRIT 33.7 % (40.0-51.0); IMMATURE GRANULOCYTES 0.5 %; IMMATURE GRANULOCYTES ABSOLUTE 0.04 10/3/uL (0.0-0.11); LYMPHOCYTES 18.5 %; LYMPHOCYTES ABSOLUTE 1.54 10/3/uL (0.67-4.30); MEAN CORPUS HGB CONC 32.6 g/dL (32.0-36.0); MEAN CORPUSCULAR HEMOGLOB 30.6 pg (26.0-34.0); MEAN CORPUSCULAR VOLUME 93.6 fL (80-100); MEAN PLATELET VOLUME 9.6 fL (9.2-13.0); MONOCYTES 8.1 %; MONOCYTES ABSOLUTE 0.67 10/3/uL (0.21-1.20); NEUTROPHILS 68.6 %; NEUTROPHILS ABSOLUTE 5.71 10/3/uL (2.02-8.40); PLATELET COUNT 192 10/3/uL (150-400); RBC DISTRIBUTION WIDTH 15.4 % (12.0-16.0); WHITE BLOOD CELLS 8.3 10/3/uL (4.5-10.5)
[2016-11-30 04:50] LABS: MANUAL DIFF NO %
[2016-11-30 05:04] LABS: CALCIUM, SERUM 8.6 MG/DL (8.5-10.4); CHLORIDE, SERUM 101 MMOL/L (96-112); CO2 (CARBON DIOXIDE) 29 MMOL/L (24-34); GFR AFRICAN AMERICAN 66 ML/MIN (>=60); GFR NON AFRICAN AMERICAN 57 ML/MIN (>=60); GLUCOSE, SERUM 128 MG/DL (60-99); INTERNATIONAL NORMAL RATI 1.6 UNITS (-); POTASSIUM, SERUM 4.6 MMOL/L (3.5-5.3); SODIUM, SERUM 138 MMOL/L (135-148)
[2016-11-30 05:09] LABS: BUN (BLOOD UREA NITROGEN) 27 MG/DL (6-23)
[2016-11-30 05:10] LABS: PROTIME (NOT ORD) 18.9 SEC (12.0-14.5)
[2016-11-30 14:12] LABS: HEPATITIS B SURFACE ANTIGEN NON-REACTIVE (NON-REACT)
[2016-11-30 14:40] LABS: HEPATITIS B CORE AB IGM NON-REACTIVE (NON-REAC); HEPATITIS C ANTIBODY NON-REACTIVE (NON-REACT)
[2016-11-30 14:42] LABS: HEP A ANTIBODY IGM NON-REACTIVE (NON-REACT)
[2016-12-01 06:13] LABS: BASOPHILS 0.2 %; BASOPHILS ABSOLUTE 0.02 10/3/uL (0.0-0.16); EOSINOPHILS 4.2 %; EOSINOPHILS ABSOLUTE 0.43 10/3/uL (0.0-0.53); HEMATOCRIT 31.1 % (40.0-51.0); HEMOGLOBIN 10.2 g/dL (13.6-17.8); IMMATURE GRANULOCYTES 0.5 %; IMMATURE GRANULOCYTES ABSOLUTE 0.05 10/3/uL (0.0-0.11); LYMPHOCYTES 15.6 %; MEAN CORPUS HGB CONC 32.8 g/dL (32.0-36.0); MEAN CORPUSCULAR HEMOGLOB 30.5 pg (26.0-34.0); MEAN CORPUSCULAR VOLUME 93.1 fL (80-100); MEAN PLATELET VOLUME 10.1 fL (9.2-13.0); MONOCYTES 7.5 %; MONOCYTES ABSOLUTE 0.77 10/3/uL (0.21-1.20); PLATELET COUNT 200 10/3/uL (150-400); RBC DISTRIBUTION WIDTH 15.6 % (12.0-16.0); RED CELL COUNT 3.34 10/6/uL (4.7-6.1); WHITE BLOOD CELLS 10.3 10/3/uL (4.5-10.5)
[2016-12-01 06:14] LABS: MANUAL DIFF NO %
[2016-12-01 06:28] LABS: A/G RATIO 0.6 (0.7-1.9); ALBUMIN 2.4 G/DL (3.5-5.0); ALKALINE PHOSPHATASE 65 U/L (45-117); BUN (BLOOD UREA NITROGEN) 25 MG/DL (6-23); CALCIUM, SERUM 8.1 MG/DL (8.5-10.4); CHLORIDE, SERUM 99 MMOL/L (96-112); CO2 (CARBON DIOXIDE) 27 MMOL/L (24-34); CREATININE 1.17 MG/DL (0.70-1.30); DIRECT BILIRUBIN 0.1 MG/DL (0.0-0.4); GFR AFRICAN AMERICAN 75 ML/MIN (>=60); GFR NON AFRICAN AMERICAN 65 ML/MIN (>=60); GLOBULIN 4.3 G/DL (2.5-4.1); GLUCOSE, SERUM 141 MG/DL (60-99); INDIRECT BILIRUBIN(NOT ORDER) 0.5 MG/DL (0.1-0.9); POTASSIUM, SERUM 4.5 MMOL/L (3.5-5.3); SGOT(AST) 49 U/L (5-40); SGPT(ALT) 65 U/L (5-65); SODIUM, SERUM 137 MMOL/L (135-148); TOTAL BILIRUBIN 0.6 MG/DL (0-1.2); TOTAL PROTEIN 6.7 G/DL (6.0-8.5)
[2016-12-01 11:09] LABS: PROCALCITONIN 0.11 ng/mL (<0.5)
[2016-12-02 06:48] LABS: BUN (BLOOD UREA NITROGEN) 23 MG/DL (6-23); CHLORIDE, SERUM 103 MMOL/L (96-112); CO2 (CARBON DIOXIDE) 29 MMOL/L (24-34); CREATININE 1.18 MG/DL (0.70-1.30); GFR AFRICAN AMERICAN 74 ML/MIN (>=60); GFR NON AFRICAN AMERICAN 64 ML/MIN (>=60); GLUCOSE, SERUM 129 MG/DL (60-99); SODIUM, SERUM 140 MMOL/L (135-148)
[2016-12-03] MEDS ORDERED: CORDARONE PO (14:41)
[2016-12-03] MEDS ORDERED: CARDCD240 PO (14:42)
[2016-12-03] MEDS ORDERED: L20 PO (14:45)
[2016-12-03] MEDS ORDERED: KLOR-CON M2020 MEQ PO (14:47)
[2016-12-03] MEDS ORDERED: SYN.05 PO (14:48)
[2016-12-03] MEDS ORDERED: FLORASTOR250 MG PO (14:49)
[2016-12-03] MEDS ORDERED: ATEN25 PO (14:51)
[2016-12-03] MEDS ORDERED: PROAIR HFA INH (14:52)
[2016-12-03] MEDS ORDERED: SPIRIVA (14:52)
== END 2016-12-03 17:57 | disposition home or self-care (01) | DRG 309 ==
LOC: ER 22:51 → 5NO 23:59
PROVIDERS: Emergency Medicine; Internal Medicine
DX: I48.0 Paroxysmal atrial fibrillation (principal); J94.8 Other specified pleural conditions; J94.2 Hemothorax; I50.9 Heart failure, unspecified; E87.70 Fluid overload, unspecified; I10 Essential (primary) hypertension; E03.9 Hypothyroidism, unspecified; Z85.118 Personal history of other malignant neoplasm of bronchus and lung; Z98.890 Other specified postprocedural states; Z87.891 Personal history of nicotine dependence; Z80.8 Family history of malignant neoplasm of other organs or systems; Z80.0 Family history of malignant neoplasm of digestive organs; Z90.2 Acquired absence of lung [part of]; Z28.21 Immunization not carried out because of patient refusal
CPT/HCPCS: 71010; 71020; 71250; 80048; 80053; 80074; 80076; 81001; 82550; 82553; 83036; 83735; 83880; 84100; 84145; 84439; 84443; 84484; 85025; 85610; 85730; 87070; 87205; 93005; 94640; 96374; 99285; A9270-GY; C8929; J1170; J1940; J2405; J2543; J3370; Q9957

== ENCOUNTER 2016-12-05 22:00 | Inpatient (IN) | payer MEDICARE ==
--- NOTE | ~2016-12-05 | DS ---
Discharge Summary [place] [id number] [facility] [place]. [address] NAME: DEBBY DUARTE : 50 STATUS : DIS IN PAT#: [id number] AGE: 66 ADM/REG DATE : 12/06/16 MR#: [id number] REPORT SERV DATE: 12/10/16 DICTATED BY: DATE: REPORT STATUS : Draft TRANSCRIBED BY: MODL DATE: 12/10/16 ADMISSION DATE: 12/06/2016 DISCHARGE DATE: 12/10/2016 DISCHARGE DIAGNOSES: 1. Acute hypoxic respiratory failure. 2. Small-cell carcinoma of the lung, status post right lobectomy on 11/23/2016. 3. Chronic obstructive pulmonary disease exacerbation. 4. Atrial fibrillation with rapid ventricular response. 5. Diarrhea. 6. Hydropneumothorax. CONSULTING PHYSICIANS: Include Dr. Javi Gamble with Pulmonology. DISCHARGE MEDICATIONS: Include atenolol 12.5 mg p.o. b.i.d., Cordarone 200 mg p.o. b.i.d. Pradaxa 150 mg p.o. b.i.d., Cardizem CD 180 mg p.o. daily, Neurontin 300 mg p.o. t.i.d., Synthroid 50 mcg p.o. daily, Bactroban topical three times daily, Florastor 250 mg p.o. b.i.d., Spiriva 18 mcg powder for inhalation one cap via HandiHaler daily, Roxicodone 15 mg p.o. q.6 hours p.r.n. for pain, guaifenesin 400 mg p.o. q.4 hours p.r.n. for cough, albuterol MDI inhaler q.4 hours p.r.n. for shortness of breath, and Symbicort 160/4.5 mg b.i.d. two inhalations. Imaging includes multiple chest x-rays as well as a CT of the chest without contrast. Chest x-ray last being this morning showing persistent right perihilar infiltrate with right pleural effusion that is stable. CT of the chest without contrast on 12/06/2016 showed a right pneumothorax which is smaller than compared to imaging on 11/30/2016. There was some slightly increased right pleural fluid, air bubbles within the posterior pleural fluid have decreased since 11/30/2016. There are surgical changes in the right lung consistent with right lower lobectomy. Stable mediastinal lymph node prominence. For full H and P, please see Dr. Beau Carrero's dictation, 12/05/2016. Please also refer to Dr. Javi Gamble's consultation dictation on 12/06/2016. HOSPITAL COURSE/PROBLEM LIST: 1. Hypoxic respiratory failure. The patient is on 1 L nasal cannula. An O2 saturation of 97%. He is on chronic O2 at home, 1-2 L. He is in no acute distress at this time. Dr. Javi Gamble signed off on 12/07/2016 with recommendations for home medications. However, the patient's respiratory status has been stable since that time. 2. Small cell carcinoma, status post right lobectomy. The patient is to follow up with the [facility] as soon as possible. 3. COPD exacerbation. This is resolved. I will discharge the patient with Spiriva, Symbicort, and albuterol. Again, the patient will follow up with [facility]. 4. Atrial fibrillation with rapid ventricular response. The patient's heart rate is controlled. It is actually esteban in the 50s. I will continue the patient's Pradaxa as well as diltiazem, amiodarone, and atenolol, and [facility]. Discharge Summary [address] [address] NAME: DEBBY DUARTE : 50 STATUS : DIS IN PAT#: [id number] AGE: 66 ADM/REG DATE : 12/06/16 MR#: [id number] REPORT SERV DATE: 12/10/16 DICTATED BY: DATE: REPORT STATUS : Draft TRANSCRIBED BY: MODL DATE: 12/10/16 5. Diarrhea. The patient reports still having two to three stools a day that are loose. We performed a C. diff culture which was negative. I recommended that the patient take Imodium p.r.n. if he needs it as well as [facility] with the [facility] if his diarrhea does not resolve. I also explained that if he is unable to take in fluids or his diarrhea increases to the point of dehydration that he should come to the emergency department. The patient is currently hemodynamically stable with a temperature of 98, heart rate of 58, respirations 16, O2 saturation 97% on 1 L nasal cannula, and blood pressure 109/59. CLR/MODL Sam Smith NP / [id number] CC: Juan Owens MD
--- NOTE | ~2016-12-05 | HP ---
History And Physical [facility] [address] [place]. [address] NAME: DEBBY DUARTE : 50 STATUS : ADM IN PAT#: [id number] AGE: 66 ADM/REG DATE : 12/06/16 MR#: [id number] REPORT SERV DATE: 12/06/16 DICTATED BY: LENA PENNY DATE: 12/06/16 REPORT STATUS : Draft TRANSCRIBED BY: MODL DATE: 12/06/16 DATE OF ADMISSION: 12/06/2016 CHIEF COMPLAINT: A 66-year-old male recently undergoing large right lung lobectomy for squamous cell carcinoma of the lung, now presenting with recurrent respiratory issues. HISTORY OF PRESENT ILLNESS: The patient's history was obtained through careful interview with the patient, coupled with review of [facility] and [facility] medical records. The patient first was diagnosed with an abnormality in his right lung in June 2016, after multiple evaluations it was determined to be squamous cell carcinoma, and then on 11/23/2016 at the [facility] the patient had large right lung lobectomy for removal of the cancer, he was stabilized quickly and able to be discharged by 11/27/2016. However, within 24 hours of being discharged from the [facility], the patient then presented to [facility] and was admitted on 11/28/2016 with hydropneumothorax on the right side. He had difficulty recovering and stabilizing from this, but seemed to be showing progress. He was discharged after a few days in the hospital, but then had to re-present once again, but after feeling the patient was stabilized once again he was discharged just on 12/05/2016. Despite all these recent hospital stays, the patient has had progressive shortness of breath characterized by dyspnea on exertion. He describes right-sided chest discomfort a sharp quality, pleuritic in nature, 4/10 severity only though. His cough has been productive of blood. A new problem for the patient in 24 hours leading up to admission, he developed new onset diarrhea that has been "severe" and he claims he has had about 12 large diarrhea bowel movements today already. He has had nausea, but no vomiting. He describes chills, rigors, and "freezing to ." No sweating. No measured fevers though. REVIEW OF SYSTEMS: Otherwise, a 14-point review of systems was obtained and was negative. PAST MEDICAL HISTORY: 1. Squamous cell carcinoma of the lung removed on 11/23/2016 followed by [facility]. 2. Atrial fibrillation. History And Physical [address] [address] NAME: DEBBY DUARTE : 50 STATUS : ADM IN PAT#: [id number] AGE: 66 ADM/REG DATE : 12/06/16 MR#: [id number] REPORT SERV DATE: 12/06/16 DICTATED BY: LENA PENNY DATE: 12/06/16 REPORT STATUS : Draft TRANSCRIBED BY: LEIA DATE: 12/06/16 3. Hypothyroidism. 4. Neuropathy. 5. Right hydropneumothorax. 6. COPD with childhood asthma. 7. Shingles. 8. Erectile dysfunction. PAST SURGICAL HISTORY: 1. Right lobectomy. 2. Left inguinal hernia repair. 3. Left rotator cuff repair. 4. Left peritonsillar abscess drainage. 5. Finger abscess. ALLERGIES: NO KNOWN DRUG ALLERGIES. SOCIAL HISTORY: Quit smoking in early in 2017. Drinks occasional alcohol. Lives in [place], [place]. He is from his . He lives with his 9-year-old son. He also has a 40-year-old son. He has worked as a musician, particularly singing and playing the base. FAMILY HISTORY: Atrial fibrillation and diabetes. Father of colon cancer. Mother with throat cancer. CURRENT MEDICATIONS: 1. Albuterol inhaler. 2. Amiodarone 200 mg daily. 3. Atenolol 12.5 mg p.o. b.i.d. 4. Pradaxa 150 mg p.o. b.i.d. 5. Diltiazem extended release 240 mg daily. 6. Lasix 20 mg p.o. b.i.d. 7. Neurontin 300 mg p.o. t.i.d. 8. Guaifenesin 400 mg p.o. q.4 hours p.r.n. 9. Synthroid 50 mcg daily. 10.Bactroban. 11.Roxicodone 15 mg p.o. q.6 hours p.r.n. 12.Potassium 20 mEq p.o. daily. 13.Florastor 250 mg p.o. b.i.d. 14.Spiriva inhale daily. PHYSICAL EXAMINATION: VITAL SIGNS: Temperature 99.3, pulse 136, blood pressure 132/76, respiratory rate 22, and O2 saturation 94% on 2 L nasal cannula. GENERAL: An ill-appearing male, with evidence of some distress secondary to shortness of breath. HEENT: Pupils equal, round, and reactive to light. No conjunctival pallor. No scleral icterus. Nares are patent. Oropharynx is clear of obstruction. Moist mucous membranes. History And Physical [address] [address] NAME: DEBBY DUARTE : 50 STATUS : ADM IN [facility]#: [id number] AGE: 66 ADM/REG DATE : 12/06/16 MR#: [id number] REPORT SERV DATE: 12/06/16 DICTATED BY: LENA PENNY DATE: 12/06/16 REPORT STATUS : Draft TRANSCRIBED BY: LEIA DATE: 12/06/16 NECK: Trachea midline. No thyromegaly. LYMPH: No cervical lymphadenopathy. No supraclavicular lymphadenopathy. RESPIRATORY: The patient has diminished breath sounds at the right base of lung with dullness to percussion suggest effusion. Scattered rhonchi are noted on exam. No rales. Currently, the patient has a labored respiratory effort. CARDIOVASCULAR: Tachycardic. Irregularly irregular. No murmurs, rubs, or gallops. No extremity edema is appreciated. ABDOMEN: Soft, nontender, and nondistended. Normal bowel sounds auscultated throughout. No organomegaly. DERMATOLOGICAL: Warm and dry extremities. No pallor. No cyanosis. PSYCHIATRIC: Normal affect. Good mood. Alert and oriented x3. LABORATORY DATA: White blood cell count 13.8, hemoglobin 12, hematocrit 35, and platelets 321. Sodium 140, potassium 3.8, chloride 104, bicarb 25, BUN 15, creatinine 1.14, and glucose 130. Troponin negative. Albumin 2.4. INR 1.3. STUDIES: 1. Chest x-ray by my own evaluation shows stable right pleural effusion, pulmonary edema, bilateral infiltrates. 2. EKG by my own evaluation shows rapid atrial fibrillation, ST depressions, T-wave inversions in leads V3 through V6. ASSESSMENT AND PLAN: 1. Hypoxic respiratory failure. Provide supportive care. 2. Systemic inflammatory response syndrome with possible pneumonia. White blood cell count of 13.8. Tachycardia, tachypnea, hypoxia and rigors, place on IV antibiotics. Check procalcitonin. Check a CT scan of the chest particularly to rule out empyema. 3. Chronic obstructive pulmonary disease exacerbation. Place on Solu-Medrol IV and Duo nebulizers. 4. Severe diarrhea. Check Clostridium difficile toxin. 5. Rapid atrial fibrillation. Converted in the emergency department with Cardizem drip. We will check telemetry. 6. Squamous cell carcinoma, lung cancer status post right lobectomy on 11/23/2016. KPCalvin/LEIA Lena Penny M.D. / [id number] History And Physical [address] [address] NAME: DEBBY DUARTE : 50 STATUS : ADM IN [facility]#: [id number] AGE: 66 ADM/REG DATE : 12/06/16 MR#: [id number] REPORT SERV DATE: 12/06/16 DICTATED BY: LENA PENNY DATE: 12/06/16 REPORT STATUS : Draft TRANSCRIBED BY: LEIA DATE: 12/06/16 CC: Mame Rodarte M.D.
--- NOTE | ~2016-12-05 | CN ---
Consultation Report [facility] [address] [place]. [address] NAME: DEBBY CHAND : 50 STATUS : ADM IN PAT#: [id number] AGE: 66 ADM/REG DATE : 12/06/16 MR#: [id number] REPORT SERV DATE: 12/06/16 DICTATED BY: JUAN GAMBLE IV DATE: 12/06/16 REPORT STATUS : Draft TRANSCRIBED BY: LEIA DATE: 12/06/16 PULMONARY CONSULTATION DATE OF CONSULTATION: 12/06/2016 REQUESTING PHYSICIAN: Yas Castano M.D. REASON FOR REQUEST: Recurrent hypoxemic respiratory failure. HISTORY OF PRESENT ILLNESS: History was obtained from the patient and the records. Mr. 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 The patient underwent his right lower lobectomy at the [facility] facility on Wednesday of last week. He had a 7 cm squamous cell carcinoma with negative lymph nodes. He had postoperative atrial fibrillation, for which he was placed on amiodarone and reportedly cardioverted. He was in sinus rhythm at the time of discharge. He was admitted here on the with atrial fibrillation with rapid ventricular response. CT scan at that time demonstrated an odd collection of air just below the right lower lobe stump with a hydropneumothorax. Cardiology, Pulmonary, and Cardiothoracic Surgery were all consulted. The patient was not felt to have a stump leak and was chemically cardioverted to normal sinus rhythm and discharged several days ago. When the patient went home, he reports that he developed severe diarrhea. He had by his report a temperature of 100. That value varied as I spoke with him, and he had increased shortness of breath, sensed palpitations, and pain anterior to his incision site with coughing. He has had intermittent scant hemoptysis with the exact amount varying though that has decreased in amount. Upon presentation to the emergency room, he was treated as if he had a COPD exacerbation and placed back on antibiotic therapy. A stool for C. diff was negative. Currently, the patient is eating supper, in no distress. He was discharged on supplemental oxygen, he remains on supplemental oxygen at 4 L at this time. He reportedly was compliant with his Spiriva and an albuterol nebulizer that he used as needed at home. Per last consult, the patient had significant symptoms consistent with obstructive sleep apnea, for which he was it was recommended that he undergo a formal sleep evaluation. PULMONARY HISTORY: Remarkable for no history of childhood asthma or known adult obstructive lung disease by his report. He did have preoperative pulmonary function studies but was unaware of the results. He does have significant emphysematous changes with some scarring on chest CT scan. He has a [id number] smoking history, who quit at the time of his diagnosis of a squamous cell carcinoma. 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 He was ordered the Prevnar-13 vaccination at the time of his discharge. Consultation Report [facility] [address] [place]. [address] NAME: DEBBY CHAND : 50 STATUS : ADM IN [facility]#: [id number] AGE: 66 ADM/REG DATE : 12/06/16 MR#: [id number] REPORT SERV DATE: 12/06/16 DICTATED BY: JUAN GAMBLE IV DATE: 12/06/16 REPORT STATUS : Draft TRANSCRIBED BY: LEIA DATE: 12/06/16 PAST MEDICAL HISTORY: 1. Squamous carcinoma of the right lower lobe. 2. Atrial fibrillation. 3. Pulmonary emphysema. 4. Postoperative hypoxemia. 5. Hydropneumothorax. 6. Hypothyroidism. PAST SURGICAL HISTORY: 1. Right lower lobectomy. 2. Tonsillectomy for a tonsillar abscess. 3. Left inguinal herniorrhaphy repair. 4. Left rotator cuff. ALLERGIES: NO KNOWN DRUG ALLERGIES. CURRENT MEDICATIONS: The patient is on Cardizem 240 mg daily, Cordarone 200 mg daily, Dulera two puffs twice a day, DuoNeb every six hours, Florastor one twice a day, azithromycin 500 mg daily, Neurontin 300 mg three times a day, Pradaxa 150 mg twice a day, Solu-Medrol 40 mg q.12 hours, Synthroid 50 mcg daily, and Tenormin 12.5 mg twice a day. SOCIAL HISTORY: Remarkable for the tobacco use as above. The patient denies alcohol or illicit drug use. He is currently living with his first , whom he has , and they have one child. FAMILY HISTORY: Remarkable for father with atrial fibrillation, colon cancer, and diabetes; one sibling with atrial fibrillation and diabetes; and a mother with an unspecified cancer in a lymph node in her neck. REVIEW OF SYSTEMS: Fourteen systems reviewed, and pertinent positives noted above. PHYSICAL EXAMINATION: GENERAL: This is an obese, elderly male, eating supper, in no distress. He is wearing supplemental oxygen. VITAL SIGNS: Temperature is 97.3, pulse is 73, respiratory rate is 20, saturations are 96% on 4 L, blood pressure is 106/56. HEENT: The patient is normocephalic, atraumatic. Extraocular movements are intact. Pupils react to light. Sclerae and conjunctivae normal. He has a nasal cannula in place. He has a Mallampati 3 airway with elongated soft palate, narrowing of the posterior pharyngeal space. He is edentulous. NECK: Without any palpable lymphadenopathy or thyromegaly. CHEST: The patient has a healed thoracotomy incision site. He has chest tube scars. He has decreased breath sounds, particularly at the right base with some bibasilar inspiratory crackles. No true wheezes or rhonchi are noted. Consultation Report [address] [place]. [address] NAME: DEBBY CHAND : 50 STATUS : ADM IN [facility]#: [id number] AGE: 66 ADM/REG DATE : 12/06/16 MR#: [id number] REPORT SERV DATE: 12/06/16 DICTATED BY: JUAN GAMBLE IV DATE: 12/06/16 REPORT STATUS : Draft TRANSCRIBED BY: MODCalvin DATE: 12/06/16 CARDIOVASCULAR: Jugular venous pulsations appear to be approximately 5 to 6 cm. He has 2+ carotid upstrokes, no obvious bruit. He has a regular S1, S2 with no clear murmur or S3. Peripheral pulses are diminished. ABDOMEN: Protuberant, soft. There are normoactive bowel sounds. There is no palpable hepatosplenomegaly or masses. EXTREMITIES: Demonstrate no cyanosis, clubbing, edema, or palpable cords. NEUROLOGIC: Strength is 5/5 and sensation intact to light touch. LABORATORY DATA: Review of the chest CT scan demonstrates a change in the air pocket below the right lower lobe bronchus. There are a few air bubbles in the residual soft tissue fluid in the right lower thorax. There is a persistent infiltrate in the right middle lobe with significant centrilobular and paraseptal changes. There is some interlobular septal thickening as well. There is a decrease in the size of the hydropneumothorax from the previous study with more fluid and less air. CBC: Hemoglobin 10.5, hematocrit 32.3, platelet count is 286,000, and white blood cell count 6.9. INR is 1.6. Procalcitonin level is less than 0.05. Sodium is 142, potassium 3.2, chloride 105, bicarbonate 26, BUN 15, creatinine 1.2, glucose 179. TSH is 3.81, which is lower. Troponin is negative, and post-treatment potassium is 4.2. ASSESSMENT AND PLAN: 1. Respiratory. There is no evidence for COPD exacerbation. We will discontinue the Solu- Medrol. We will add Spiriva one capsule daily. Albuterol will be made as needed for symptoms. We will continue the Dulera. Oximetry to be decreased to 3 L and titrated as needed. There are the postoperative thoracotomy changes without any evidence for a bronchopleural fistula with an actual decrease in the size of a pneumothorax with a slightly larger hydrothorax. The patient does warrant an outpatient sleep evaluation. 2. Infectious disease. There is no indication for antibiotics, particularly azithromycin with use of amiodarone. These will be discontinued, and sputum was sent for Gram stain culture. Florastor will be continued one twice a day. 3. Endocrinologic. Insulin sliding scale has been ordered. The patient will remain on the Synthroid with a repeat TSH in three to four weeks on therapy. 4. Neurologic. We will continue the Neurontin narcotics as needed. 5. Gastrointestinal. The patient has negative C. diff and has been given Imodium as needed for diarrhea. 6. Cardiovascular. With the patient being back in atrial fibrillation, we will increase the amiodarone to 200 mg twice a day, which I would continue for probably a week and then decrease to 200 mg daily. Other management could be per Cardiology. Thank you for consulting us. We will follow the patient with you. ANDRES/EVANGELINAL Juan Gamble Consultation Report [facility] [address] [place]. [address] NAME: DEBBY CHAND : 50 STATUS : ADM IN PAT#: [id number] AGE: 66 ADM/REG DATE : 12/06/16 MR#: [id number] REPORT SERV DATE: 12/06/16 DICTATED BY: JUAN GAMBLE IV DATE: 12/06/16 REPORT STATUS : Draft TRANSCRIBED BY: LEIA DATE: 12/06/16 Bel SIDDIQI / [id number]
[~2016-12-05 22:00] MED LIST changes: +ATEN25 PO; +AUG875 PO; +BACTROCR TOP; +CARBOXYMETHYLCELLULOSE; +CARDCD120 PO; +CARDCD240 PO; +CORDARONE PO; +D.O.S.100 MG PO; +FENESIN IR400 MG PO; +FLONASE NAS; +FLORASTOR250 MG PO; +HYPOTEARS; +KLOR-CON M2020 MEQ PO; +L20 PO; +NEUR300 PO; +PACERONE200 MG PO; +PRADAXA150 MG PO; +PROAIR HFA INH; +ROXICODONE15 MG PO; +SPIRIVA; +SYN.05 PO; +TRIAMCINOLONE454 GM TOP; +VIAGRA100 MG PO
[2016-12-05 22:23] LABS: BASOPHILS 0.1 %; BASOPHILS ABSOLUTE 0.01 10/3/uL (0.0-0.16); EOSINOPHILS 1.6 %; EOSINOPHILS ABSOLUTE 0.22 10/3/uL (0.0-0.53); ER CBC TAT 0 Hrs 09 Mins; HEMATOCRIT 35.4 % (40.0-51.0); HEMOGLOBIN 11.7 g/dL (13.6-17.8); IMMATURE GRANULOCYTES 0.6 %; IMMATURE GRANULOCYTES ABSOLUTE 0.08 10/3/uL (0.0-0.11); LYMPHOCYTES 12.5 %; LYMPHOCYTES ABSOLUTE 1.72 10/3/uL (0.67-4.30); MANUAL DIFF NO %; MEAN CORPUS HGB CONC 33.1 g/dL (32.0-36.0); MEAN CORPUSCULAR HEMOGLOB 30.7 pg (26.0-34.0); MEAN CORPUSCULAR VOLUME 92.9 fL (80-100); MEAN PLATELET VOLUME 9.4 fL (9.2-13.0); MONOCYTES 2.7 %; MONOCYTES ABSOLUTE 0.37 10/3/uL (0.21-1.20); NEUTROPHILS 82.5 %; NEUTROPHILS ABSOLUTE 11.39 10/3/uL (2.02-8.40); PLATELET COUNT 321 10/3/uL (150-400); RED CELL COUNT 3.81 10/6/uL (4.7-6.1); WHITE BLOOD CELLS 13.8 10/3/uL (4.5-10.5)
[2016-12-05 22:30] LABS: INTERNATIONAL NORMAL RATI 1.3 UNITS (-); PARTIAL THROMBO TIME 48.4 SEC (22.5-37.2); PROTIME (NOT ORD) 16.5 SEC (12.0-14.5)
[2016-12-05 22:39] LABS: BUN (BLOOD UREA NITROGEN) 15 MG/DL (6-23); CALCIUM, SERUM 8.4 MG/DL (8.5-10.4); CHEST PAIN PROFILE TAT 0 Hrs 25 Mins; CHLORIDE, SERUM 104 MMOL/L (96-112); CO2 (CARBON DIOXIDE) 26 MMOL/L (24-34); CREATININE 1.14 MG/DL (0.70-1.30); GFR AFRICAN AMERICAN 77 ML/MIN (>=60); GFR NON AFRICAN AMERICAN 67 ML/MIN (>=60); GLUCOSE, SERUM 130 MG/DL (60-99); POTASSIUM, SERUM 3.8 MMOL/L (3.5-5.3); SODIUM, SERUM 140 MMOL/L (135-148); TROPONIN I <0.02 NG/ML (<0.05)
[2016-12-06 11:51] LABS: HEMATOCRIT 32.3 % (40.0-51.0); HEMOGLOBIN 10.5 g/dL (13.6-17.8); MEAN CORPUS HGB CONC 32.5 g/dL (32.0-36.0); MEAN CORPUSCULAR HEMOGLOB 29.8 pg (26.0-34.0); MEAN CORPUSCULAR VOLUME 91.8 fL (80-100); MEAN PLATELET VOLUME 9.1 fL (9.2-13.0); PLATELET COUNT 286 10/3/uL (150-400); RBC DISTRIBUTION WIDTH 15.8 % (12.0-16.0); RED CELL COUNT 3.52 10/6/uL (4.7-6.1)
[2016-12-06 11:52] LABS: MANUAL DIFF YES %; WHITE BLOOD CELLS 6.9 10/3/uL (4.5-10.5)
[2016-12-06 11:59] LABS: INTERNATIONAL NORMAL RATI 1.6 UNITS (-); PROTIME (NOT ORD) 18.7 SEC (12.0-14.5)
[2016-12-06 12:00] LABS: PARTIAL THROMBO TIME 59.4 SEC (22.5-37.2)
[2016-12-06 12:15] LABS: A/G RATIO 0.5 (0.7-1.9); ALBUMIN 2.4 G/DL (3.5-5.0); ALKALINE PHOSPHATASE 71 U/L (45-117); BUN (BLOOD UREA NITROGEN) 15 MG/DL (6-23); CALCIUM, SERUM 8.2 MG/DL (8.5-10.4); CHLORIDE, SERUM 105 MMOL/L (96-112); CO2 (CARBON DIOXIDE) 26 MMOL/L (24-34); GFR AFRICAN AMERICAN 73 ML/MIN (>=60); GFR NON AFRICAN AMERICAN 63 ML/MIN (>=60); GLOBULIN 4.5 G/DL (2.5-4.1); POTASSIUM, SERUM 3.2 MMOL/L (3.5-5.3); SGOT(AST) 23 U/L (5-40); SGPT(ALT) 38 U/L (5-65); SODIUM, SERUM 142 MMOL/L (135-148); TOTAL BILIRUBIN 0.3 MG/DL (0-1.2); TOTAL PROTEIN 6.9 G/DL (6.0-8.5); TROPONIN I <0.02 NG/ML (<0.05)
[2016-12-06 12:18] LABS: GLUCOSE, SERUM 179 MG/DL (60-99)
[2016-12-06 12:22] LABS: BAND NEUTROPHILS 12 %; IMMATURE GRANS ABSOLUTE (CALC) 0.14 10/3/uL (0.0-0.11); LYMPHOCYTES 8 %; LYMPHOCYTES ABSOLUTE (CALC) 0.55 10/3/uL (0.67-4.30); METAMYELOCYTES 2 %; MONOCYTES 2 %; MONOCYTES ABSOLUTE (CALC) 0.14 10/3/uL (0.21-1.20); NEUTROPHILS ABSOLUTE (CALC) 6.07 10/3/uL (2.02-8.40); PLATELET ESTIMATE ADQ (ADEQUATE); RBC MORPHOLOGY NORM (NORMAL); SEGMENTED NEUTROPHIL (0) 76 %; TOTAL NUCLEATED CELLS 100
[2016-12-06 12:36] LABS: PROCALCITONIN <0.05 ng/mL (<0.5)
[2016-12-08 10:42] LABS: BASOPHILS 0.2 %; BASOPHILS ABSOLUTE 0.02 10/3/uL (0.0-0.16); EOSINOPHILS 2.5 %; HEMATOCRIT 30.8 % (40.0-51.0); HEMOGLOBIN 10.4 g/dL (13.6-17.8); IMMATURE GRANULOCYTES 0.4 %; IMMATURE GRANULOCYTES ABSOLUTE 0.03 10/3/uL (0.0-0.11); MANUAL DIFF NO %; MEAN CORPUS HGB CONC 33.8 g/dL (32.0-36.0); MEAN CORPUSCULAR HEMOGLOB 30.4 pg (26.0-34.0); MEAN CORPUSCULAR VOLUME 90.1 fL (80-100); MEAN PLATELET VOLUME 9.3 fL (9.2-13.0); MONOCYTES 5.3 %; MONOCYTES ABSOLUTE 0.43 10/3/uL (0.21-1.20); NEUTROPHILS 75.6 %; NEUTROPHILS ABSOLUTE 6.17 10/3/uL (2.02-8.40); PLATELET COUNT 289 10/3/uL (150-400); RBC DISTRIBUTION WIDTH 15.8 % (12.0-16.0); RED CELL COUNT 3.42 10/6/uL (4.7-6.1); WHITE BLOOD CELLS 8.2 10/3/uL (4.5-10.5)
[2016-12-08 10:57] LABS: BUN (BLOOD UREA NITROGEN) 15 MG/DL (6-23); CHLORIDE, SERUM 108 MMOL/L (96-112); CO2 (CARBON DIOXIDE) 25 MMOL/L (24-34); FREE T4 1.11 NG/DL (0.76-1.46); GFR AFRICAN AMERICAN 103 ML/MIN (>=60); GFR NON AFRICAN AMERICAN 89 ML/MIN (>=60); SODIUM, SERUM 143 MMOL/L (135-148)
[2016-12-08 10:58] LABS: GLUCOSE, SERUM 136 MG/DL (60-99); POTASSIUM, SERUM 3.7 MMOL/L (3.5-5.3)
[2016-12-10] MEDS ORDERED: CARDCD180 PO (14:06)
[2016-12-10] MEDS ORDERED: SYMBICORT 160/41 INH INH (14:13)
== END 2016-12-10 16:14 | disposition home or self-care (01) | DRG 189 ==
LOC: ER 22:00 → 7NO 12-06 02:00
PROVIDERS: Hospitalist; Nurse Practitioner; Nurse Practitioner Acute Care
DX: J96.21 Acute and chronic respiratory failure with hypoxia (principal); C34.31 Malignant neoplasm of lower lobe, right bronchus or lung; J94.8 Other specified pleural conditions; I48.91 Unspecified atrial fibrillation; J44.1 Chronic obstructive pulmonary disease with (acute) exacerbation; Z90.2 Acquired absence of lung [part of]; Z23 Encounter for immunization; R19.7 Diarrhea, unspecified; E03.9 Hypothyroidism, unspecified; E66.9 Obesity, unspecified; Z83.3 Family history of diabetes mellitus; Z80.0 Family history of malignant neoplasm of digestive organs; Z68.33 Body mass index [BMI] 33.0-33.9, adult; I10 Essential (primary) hypertension; Z87.891 Personal history of nicotine dependence; Z79.899 Other long term (current) drug therapy
CPT/HCPCS: 71010; 71020; 71250; 80048; 80053; 82962; 83735; 83880; 84132; 84145; 84439; 84443; 84484; 85025; 85610; 85730; 87493; 87493-59; 90670; 93005; 94640; 99285; 99291; A9270-GY; G0009; J0456; J2920